=== PATIENT | male | born 1970 | race Caucasian/White ===

== ENCOUNTER 2016-08-24 20:17 | Inpatient (IN) | payer OTHER ==
[~2016-08-24] VITALS: Ht 185.4 cm; Wt 90.0 kg
[~2016-08-24 20:17] MED LIST: CATAPRES0.1 MG PO; DESYREL100 MG PO; FLEXERIL10 MG PO; INDERAL80 M1 PO; KLONOPIN1 M2 PO; LITHIUM CARBON300 MG PO; NAPROSYN500 MG PO; PAXIL CR25 MG PO; TENEX1 M1 PO; XANAX1 MG PO
[2016-08-24 21:15] LABS: HEMATOCRIT 48.4 % (38.0-50.0); MCH 30.8 PG (29.0-34.0); MCHC 33.5 G/DL (30.0-36.0); MEAN PLAT.VOLUME 9.6 uM^3 (9.0-12.4); PLATELET COUNT 249 K/uL (156-360); RBC DIS.WIDTH-CV 13.4 % (11.8-14.6); RBC DIS.WIDTH-SD 45.5 % (39-53); RED BLOOD COUNT 5.26 M/uL (4.00-5.50); WHITE BLOOD COUNT 9.5 K/uL (4.1-10.2)
[2016-08-24 21:25] LABS: CHLORIDE 104 mEq/L (99-109); POTASSIUM 4.1 mEq/L (3.7-5.4); SODIUM 141 mEq/L (136-147)
[2016-08-24 21:26] LABS: GLUCOSE 85 mg/dL (70-99)
[2016-08-24 21:28] LABS: ANION GAP 7 MEQ/L (2-14)
[2016-08-24 21:30] LABS: GFR ESTIMATE (CALCULATED) > 59 mL/min/; SERUM ETHYL ALCOHOL < 10 mg/dL
[2016-08-24 21:31] LABS: UREA NITROGEN (BUN) 9 mg/dL (9-23)
[2016-08-24 22:07] LABS: AMPHETAMINE NEGATIVE (500 ng/mL); BARBITURATES NEGATIVE (200 ng/mL); BENZODIAZEPINES PRESUMPTIVE POSITIVE (150 ng/mL); COCAINE PRESUMPTIVE POSITIVE (150 ng/mL); INTERNAL CONTROLS VALID? YES; METHADONE NEGATIVE (200 ng/mL); METHAMPHETAMINE NEGATIVE (500 ng/mL); OPIATES (MORPHINE) PRESUMPTIVE POSITIVE (100 ng/mL); OXYCODONE NEGATIVE (100 ng/mL); PHENCYCLIDINE NEGATIVE (25 ng/mL); PROPOXYPHENE NEGATIVE (300 ng/mL); THC CANNABINOIDS PRESUMPTIVE POSITIVE (50 ng/mL); TRICYCLIC ANTIDEPRESSANTS NEGATIVE (300 ng/mL)
[2016-08-24 22:08] LABS: ADD MEDTOX COMMENT Y
[2016-08-24 22:29] LABS: BENZODIAZEPINES, URINE SCREEN POSITIVE (200 ng/mL)
[2016-08-25] MEDS ORDERED: RELAFEN750 MG PO (01:34)
[2016-08-25] MEDS ORDERED: OXCARBAZEPINE600 MG PO (01:35)
[2016-08-25] MEDS ORDERED: EFFEXOR75 MG PO (01:37)
[2016-08-25] MEDS ORDERED: OXCARBAZEPINE300 MG PO (01:37)
[2016-08-25 02:40] VITALS: BP 105/66
== END 2016-08-25 02:41 | disposition left against medical advice (07) | DRG 881 ==
LOC: EME 20:17 → EDOF 08-25 01:33
DX: F32.9 Major depressive disorder, single episode, unspecified (principal); R45.851 Suicidal ideations; F11.20 Opioid dependence, uncomplicated; F14.20 Cocaine dependence, uncomplicated; F12.20 Cannabis dependence, uncomplicated
CPT/HCPCS: 70450; 80048; 84999; 85027; 90839; 99281; 99285; G0480